=== PATIENT | female | born 1970 | race African-American/Black ===

== ENCOUNTER 2016-10-30 16:36 | Emergency (ER) | payer SELFPAY ==
--- OUTSIDE RECORDS SUMMARY | 2016-10-30 16:38 | XMS ---
:1970 Author Organization [facility] Address Unavailable , Allergies, Adverse Reactions, Alerts Allergy Name Reaction Description Start Date Severity Status Provider No Known Allergies Sangeetha Wasserman Conditions or Problems Problem Name Problem Code Onset Status Provider Entry Standard Date Date Description NEED PROPH ICD-V06.9 Active Aurdis NEED FOR VACCINATION W/UNSPEC 7 Mack KING 7 PROPHYLACTIC COMB VACCINE VACCINATION WITH UNSPECIFIED COMBINED VACCINE EDEMA LEG ICD-782.3 Active Amol Hagen EDEMA 8 PRODUCTION PAINTER 8 ANKLE PAIN, LEFT ICD-719.47 Active Amol Hagen PAIN IN JOINT, 8 PRODUCTION PAINTER 8 ANKLE AND FOOT ARM NUMBNESS ICD-782.0 Active Amol Hagen DISTURBANCE OF 8 PRODUCTION PAINTER 8 SKIN SENSATION 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 7 6 Medication List Medication Instructions Start Date Stop Date Product Name NDC Generic Name NAPROSYN 500 MG 1 by NAPROSYN [id number] NAPROXEN Active TABS mouth twice a day SPIRONOLACTONE SPIRONOLACTONE 80482079562 SPIRONOLACTONE Active 100 MG TABS TRAMADOL HCL 50 1-2 TRAMADOL HCL 60841150754 TRAMADOL HCL Active MG TABS tablets by mouth 4 times a day as needed for pain GABAPENTIN 300 1 by GABAPENTIN 56229713690 GABAPENTIN Active MG CAPS mouth three times a day AMITRIPTYLINE 1 by AMITRIPTYLINE 77564394506 AMITRIPTYLINE Active HCL 10 MG TABS mouth HCL HCL nightly at bedtime PROAIR HFA 108 2 puffs PROAIR HFA 72955610108 ALBUTEROL Active (90 BASE) every 4 SULFATE MCG/ACT AERS to 6 hours FLONASE 50 2 sprays FLONASE 85215935528 FLUTICASONE Active MCG/ACT SUSPN each PROPIONATE nostril (NASAL) every day CETIRIZINE HCL one CETIRIZINE HCL 77862549349 CETIRIZINE HCL Active 10 MG TABS tablet by mouth daily. Diagnostic Results Date Name Value Unit Range Description Lab Report: CBC With Differential/Platelet, Comp. Metabolic Panel (14) - Chemistry Absolute Neutrophils 1.9 X10E3/UL 10*3/uL 1.8-7.8 urea nitrogen/creatinine ratio, 14 9-23 serum sodium, serum 141 mmol/L 627-189 1733/02/28 potassium, serum 4.2 mmol/L 3.5-5.2 chloride, serum 103 mmol/L 97-108 carbon dioxide, venous blood 24 mmol/L 20-32 calcium, serum 9.7 mg/dL 8.7-10.2 protein, total, serum 7.3 g/dL 6.0-8.5 albumin, serum 4.2 g/dL 3.5-5.5 globulin, serum 3.1 1.5-4.5 albumin/globulin ratio, serum 1.4 1.1-2.5 bilirubin, serum, total 0.4 mg/dL 0.0-1.2 alkaline phosphatase, serum 86 U/L 25-150 aspartate aminotransferase (SGOT), 22 U/L 0-40 serum alanine aminotransferase (SGPT), 44 U/L 0-40 serum immature granulocytes, percentage 0 % 0-2 of total cells, blood blood glucose, random 68 mg/dL 65-99 urea nitrogen, blood 10 mg/dL 6-24 creatinine, serum 0.69 mg/dL 0.57-1.00 Estimated Glomerular Filtration 109 mL/min/1.73m2 >59 Rate (calc) Lab Report: CBC With Differential/Platelet, Comp. Metabolic Panel (14) - Genetics/fertility eGFR if 126 mL/min/1.73m2 >59 Lab Report: CBC With Differential/Platelet, Comp. Metabolic Panel (14) - Hematology lymphocyte count, blood, automated 3.5 X10E3/UL 10*3/mm3 0.7- 4.5 monocyte count, blood, automated 0.5 X10E3/UL 10*3/uL 0.1-1.0 Eosinophil Absolute Count 0.5 X10E3/UL 10*3/uL 0.0-0.4 basophil count, absolute 0.0 x10E3/uL 0.0-0.2 leukocyte count, blood 6.4 X10E3/UL 10*3/mm3 4.0-10.5 erythrocyte (RBC) count 4.90 X10E6/UL 10*6/mm3 3.80-5.10 hemoglobin, blood 13.1 g/dL 11.5-15.0 hematocrit, blood 42.2 % 34.0-44.0 mean corpuscular volume, RBC 86 fL 80-98 mean corpuscular hemoglobin, RBC 26.7 pg 27.0-34.0 mean corpuscular hemoglobin 31.0 G/DL % 32.0-36.0 concentration, RBC red blood cell distribution width 14.3 % 11.7-15.0 platelet count 365 X10E3/UL 10*3/mm3 296-302 7072/02/28 neutrophils as percent of blood 30 % 40-74 leukocytes lymphocytes as percent of blood 54 % 14-46 leukocytes monocytes as percent of blood 8 % 4-13 leukocytes eosinophils as percent of blood 7 % 0-7 leukocytes basophils as percent of blood 1 % 0-3 leukocytes Lab Report: CBC With Differential/Platelet, Comp. Metabolic Panel (14), ... - Chemistry immature granulocytes, 0 % 0-1 percentage of total cells, blood blood glucose, random 46 mg/dL 65-99 urea nitrogen, blood 7 mg/dL 5-26 creatinine, serum 0.76 mg/dL 0.57-1.00 estimated glomerular filtration >59 mL/min/1.73 mL/min >59 rate urea nitrogen/creatinine ratio, 9 8-27 serum sodium, serum 142 mmol/L 672-128 4434/07/08 potassium, serum 4.0 mmol/L 3.5-5.2 chloride, serum 102 mmol/L 97-108 carbon dioxide, venous blood 16 mmol/L 20-32 calcium, serum 9.8 mg/dL 8.7-10.2 protein, total, serum 7.9 g/dL 6.0-8.5 albumin, serum 4.6 g/dL 3.5-5.5 globulin, serum 3.3 1.5-4.5 albumin/globulin ratio, serum 1.4 1.1-2.5 bilirubin, serum, total 0.3 mg/dL 0.0-1.2 alkaline phosphatase, serum 89 U/L 25-150 aspartate aminotransferase 23 U/L 0-40 (SGOT), serum alanine aminotransferase (SGPT), 39 U/L 0-40 serum bilirubin, serum, direct 0.09 mg/dL 0.00-0.40 thyroid stimulating hormone, 3.060 u[iU]/mL 0.450-4.500 serum thyroxine, serum, total 6.7 ug/dL 4.5-12.0 triiodothyronine resin uptake 34 % 24-39 free thyroxine index 2.3 1.2-4.9 Absolute Neutrophils 2.4 X10E3/UL 10*3/uL 1.8-7.8 Lab Report: CBC With Differential/Platelet, Comp. Metabolic Panel (14), ... - Hematology lymphocyte count, blood, automated 3.5 X10E3/UL 10*3/mm3 0.7- 4.5 monocyte count, blood, automated 0.5 X10E3/UL 10*3/uL 0.1-1.0 Eosinophil Absolute Count 0.5 X10E3/UL 10*3/uL 0.0-0.4 basophil count, absolute 0.0 x10E3/uL 0.0-0.2 leukocyte count, blood 7.0 X10E3/UL 10*3/mm3 4.0-10.5 erythrocyte (RBC) count 5.12 X10E6/UL 10*6/mm3 3.80-5.10 hemoglobin, blood 14.0 g/dL 11.5-15.0 hematocrit, blood 43.2 % 34.0-44.0 mean corpuscular volume, RBC 84 fL 80-98 mean corpuscular hemoglobin, RBC 27.3 pg 27.0-34.0 mean corpuscular hemoglobin 32.4 G/DL % 32.0-36.0 concentration, RBC red blood cell distribution width 14.3 % 11.7-15.0 platelet count 353 X10E3/UL 10*3/mm3 657-486 8584/07/08 neutrophils as percent of blood 34 % 40-74 leukocytes lymphocytes as percent of blood 51 % 14-46 leukocytes monocytes as percent of blood 7 % 4-13 leukocytes eosinophils as percent of blood 8 % 0-7 leukocytes basophils as percent of blood 0 % 0-3 leukocytes Encounters Code Encounter Date Provider Facility CPT-44790 Ofc Vst, Est Level II Jane Ocasio 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 CAR 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 [facility] 15:25:54 CDT CPT-64981 Ofc Vst, Est Level [facility] 16:05:32 CHOCOLATE REFINING ROLLER CPT-97823 Est Patient Nurse - Aurdis Mack RN [facility] Only Visit - 14488 16:20:34 CHOCOLATE REFINING ROLLER Procedures Code Procedure Name Date Entry Date Standard Description CPT-38269 Handling of specimen for HANDLING AND/OR transfer from clinic to 15:45:02 CHOCOLATE REFINING ROLLER CONVEYANCE OF SPECIMEN lab FOR TRANSFER FROM THE OFFICE TO A LABORATORY CPT-08739 Venipuncture COLLECTION OF VENOUS 15:45:02 CHOCOLATE REFINING ROLLER BLOOD BY VENIPUNCTURE CPT-25572 SKN TST TUBERCULOSIS ID SKIN TEST; TUBERCULOSIS, 16:20:34 CHOCOLATE REFINING ROLLER INTRADERMAL CPT-00076 Admin of Vaccine - IMMUNIZATION Injection - 1 16:20:34 CHOCOLATE REFINING ROLLER ADMINISTRATION (INCLUDES PERCUTANEOUS, INTRADERMAL, SUBCUTANEOUS, OR INTRAMUSCULAR INJECTIONS); 1 VACCINE (SINGLE OR COMBINATION VACCINE/TOXOID)
--- OUTSIDE RECORDS SUMMARY | 2016-10-30 16:38 | XMS ---
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 7 6 Medication List Medication Instructions Start Date Stop Date Product Name NDC Generic Name NAPROSYN 500 MG 1 by NAPROSYN [id number] NAPROXEN Active TABS mouth twice a day SPIRONOLACTONE SPIRONOLACTONE 58582629228 SPIRONOLACTONE Active 100 MG TABS TRAMADOL HCL 50 1-2 TRAMADOL HCL 31824001763 TRAMADOL HCL Active MG TABS tablets by mouth 4 times a day as needed for pain GABAPENTIN 300 1 by GABAPENTIN 92093276018 GABAPENTIN Active MG CAPS mouth three times a day AMITRIPTYLINE 1 by AMITRIPTYLINE 63718766123 AMITRIPTYLINE Active HCL 10 MG TABS mouth HCL HCL nightly at bedtime PROAIR HFA 108 2 puffs PROAIR HFA 26418546568 ALBUTEROL Active (90 BASE) every 4 SULFATE MCG/ACT AERS to 6 hours FLONASE 50 2 sprays FLONASE 48608329796 FLUTICASONE Active MCG/ACT SUSPN each PROPIONATE nostril (NASAL) every day CETIRIZINE HCL one CETIRIZINE HCL 03759497188 CETIRIZINE HCL Active 10 MG TABS tablet by mouth daily. Diagnostic Results Date Name Value Unit Range Description Lab Report: CBC With Differential/Platelet, Comp. Metabolic Panel (14) - Chemistry Absolute Neutrophils 1.9 X10E3/UL 10*3/uL 1.8-7.8 urea nitrogen/creatinine ratio, 14 9-23 serum sodium, serum 141 mmol/L 701-497 1080/02/28 potassium, serum 4.2 mmol/L 3.5-5.2 chloride, serum [...] % 11.7-15.0 platelet count 365 X10E3/UL 10*3/mm3 044-002 4211/02/28 neutrophils as percent of blood 30 % [...] 9 8-27 serum sodium, serum 142 mmol/L 924-530 4293/07/08 potassium, serum 4.0 mmol/L 3.5-5.2 chloride, serum [...] % 11.7-15.0 platelet count 353 X10E3/UL 10*3/mm3 596-256 1137/07/08 neutrophils as percent of blood 34 % 40-74 leukocytes lymphocytes as percent of blood 51 % 14-46 leukocytes monocytes as percent of blood 7 % 4-13 leukocytes eosinophils as percent of blood 8 % 0-7 leukocytes basophils as percent of blood 0 % 0-3 leukocytes Encounters Code Encounter Date Provider Facility CPT-02892 Ofc Vst, Est Level II Jane Ocasio AD TERMINAL MAKEUP OPERATOR [facility] 15:25:54 CDT CPT-22290 Ofc Vst, Est Level [facility] III 16:05:32 SENIOR MATERIALS SCIENTIST CPT-50027 Est Patient Nurse - Aurdis Mack RN [facility] Only Visit - [id number] 16:20:34 SENIOR MATERIALS SCIENTIST Procedures Code Procedure Name Date Entry Date Standard Description CPT-98379 Handling of specimen for HANDLING AND/OR transfer from clinic to 15:45:02 SENIOR MATERIALS SCIENTIST CONVEYANCE OF SPECIMEN lab FOR TRANSFER FROM THE OFFICE TO A LABORATORY CPT-72214 Venipuncture COLLECTION OF VENOUS 15:45:02 SENIOR MATERIALS SCIENTIST BLOOD BY VENIPUNCTURE CPT-54473 SKN TST TUBERCULOSIS ID SKIN TEST; TUBERCULOSIS, 16:20:34 SENIOR MATERIALS SCIENTIST INTRADERMAL CPT-59346 Admin of Vaccine - IMMUNIZATION Injection - 1 16:20:34 SENIOR MATERIALS SCIENTIST ADMINISTRATION (INCLUDES PERCUTANEOUS, INTRADERMAL, SUBCUTANEOUS, OR INTRAMUSCULAR INJECTIONS); 1 VACCINE (SINGLE OR COMBINATION VACCINE/TOXOID)
--- OUTSIDE RECORDS SUMMARY | 2016-10-30 16:38 | XMS ---
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 7 6 Medication List Medication Instructions Start Date Stop Date Product Name NDC Generic Name NAPROSYN 500 MG 1 by NAPROSYN [id number] NAPROXEN Active TABS mouth twice a day SPIRONOLACTONE SPIRONOLACTONE 66338102693 SPIRONOLACTONE Active 100 MG TABS TRAMADOL HCL 50 1-2 TRAMADOL HCL 70869735703 TRAMADOL HCL Active MG TABS tablets by mouth 4 times a day as needed for pain GABAPENTIN 300 1 by GABAPENTIN 04950086193 GABAPENTIN Active MG CAPS mouth three times a day AMITRIPTYLINE 1 by AMITRIPTYLINE 33903389669 AMITRIPTYLINE Active HCL 10 MG TABS mouth HCL HCL nightly at bedtime PROAIR HFA 108 2 puffs PROAIR HFA 65120233125 ALBUTEROL Active (90 BASE) every 4 SULFATE MCG/ACT AERS to 6 hours FLONASE 50 2 sprays FLONASE 24031031082 FLUTICASONE Active MCG/ACT SUSPN each PROPIONATE nostril (NASAL) every day CETIRIZINE HCL one CETIRIZINE HCL 53809109550 CETIRIZINE HCL Active 10 MG TABS tablet by mouth daily. Diagnostic Results Date Name Value Unit Range Description Lab Report: CBC With Differential/Platelet, Comp. Metabolic Panel (14) - Chemistry Absolute Neutrophils 1.9 X10E3/UL 10*3/uL 1.8-7.8 urea nitrogen/creatinine ratio, 14 9-23 serum sodium, serum 141 mmol/L 202-392 1543/02/28 potassium, serum 4.2 mmol/L 3.5-5.2 chloride, serum [...] % 11.7-15.0 platelet count 365 X10E3/UL 10*3/mm3 842-483 5684/02/28 neutrophils as percent of blood 30 % [...] 9 8-27 serum sodium, serum 142 mmol/L 046-394 5005/07/08 potassium, serum 4.0 mmol/L 3.5-5.2 chloride, serum [...] % 11.7-15.0 platelet count 353 X10E3/UL 10*3/mm3 976-531 1919/07/08 neutrophils as percent of blood 34 % 40-74 leukocytes lymphocytes as percent of blood 51 % 14-46 leukocytes monocytes as percent of blood 7 % 4-13 leukocytes eosinophils as percent of blood 8 % 0-7 leukocytes basophils as percent of blood 0 % 0-3 leukocytes Encounters Code Encounter Date Provider Facility CPT-81445 Ofc Vst, Est Level II Jane Ocasio TAPPING MACHINE OPERATOR [facility] 15:25:54 CDT CPT-70161 Ofc Vst, Est Level [facility] III 16:05:32 ASSISTANT BUSINESS MANAGER CPT-73353 Est Patient Nurse - Aurdis Mack RN [facility] Only Visit - 55027 16:20:34 ASSISTANT BUSINESS MANAGER Procedures Code Procedure Name Date Entry Date Standard Description CPT-68605 Handling of specimen for HANDLING AND/OR transfer from clinic to 15:45:02 ASSISTANT BUSINESS MANAGER CONVEYANCE OF SPECIMEN lab FOR TRANSFER FROM THE OFFICE TO A LABORATORY CPT-04714 Venipuncture COLLECTION OF VENOUS 15:45:02 ASSISTANT BUSINESS MANAGER BLOOD BY VENIPUNCTURE CPT-06932 SKN TST TUBERCULOSIS ID SKIN TEST; TUBERCULOSIS, 16:20:34 ASSISTANT BUSINESS MANAGER INTRADERMAL CPT-86215 Admin of Vaccine - IMMUNIZATION Injection - 1 16:20:34 ASSISTANT BUSINESS MANAGER ADMINISTRATION (INCLUDES PERCUTANEOUS, INTRADERMAL, SUBCUTANEOUS, OR INTRAMUSCULAR INJECTIONS); 1 VACCINE (SINGLE OR COMBINATION VACCINE/TOXOID)
--- OUTSIDE RECORDS SUMMARY | 2016-10-30 16:38 | XMS ---
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 7 6 Medication List Medication Instructions Start Date Stop Date Product Name NDC Generic Name NAPROSYN 500 MG 1 by NAPROSYN 55410215801 NAPROXEN Active TABS mouth twice a day SPIRONOLACTONE SPIRONOLACTONE 60634473316 SPIRONOLACTONE Active 100 MG TABS TRAMADOL HCL 50 1-2 TRAMADOL HCL 64672697317 TRAMADOL HCL Active MG TABS tablets by mouth 4 times a day as needed for pain GABAPENTIN 300 1 by GABAPENTIN 46236763209 GABAPENTIN Active MG CAPS mouth three times a day AMITRIPTYLINE 1 by AMITRIPTYLINE 00307988885 AMITRIPTYLINE Active HCL 10 MG TABS mouth HCL HCL nightly at bedtime PROAIR HFA 108 2 puffs PROAIR HFA 13115291755 ALBUTEROL Active (90 BASE) every 4 SULFATE MCG/ACT AERS to 6 hours FLONASE 50 2 sprays FLONASE 40599248457 FLUTICASONE Active MCG/ACT SUSPN each PROPIONATE nostril (NASAL) every day CETIRIZINE HCL one CETIRIZINE HCL 74455071962 CETIRIZINE HCL Active 10 MG TABS tablet by mouth daily. Diagnostic Results Date Name Value Unit Range Description Lab Report: CBC With Differential/Platelet, Comp. Metabolic Panel (14) - Chemistry Absolute Neutrophils 1.9 X10E3/UL 10*3/uL 1.8-7.8 urea nitrogen/creatinine ratio, 14 9-23 serum sodium, serum 141 mmol/L 570-688 9990/02/28 potassium, serum 4.2 mmol/L 3.5-5.2 chloride, serum [...] % 11.7-15.0 platelet count 365 X10E3/UL 10*3/mm3 191-543 0273/02/28 neutrophils as percent of blood 30 % [...] 9 8-27 serum sodium, serum 142 mmol/L 377-870 4350/07/08 potassium, serum 4.0 mmol/L 3.5-5.2 chloride, serum [...] % 11.7-15.0 platelet count 353 X10E3/UL 10*3/mm3 332-192 0256/07/08 neutrophils as percent of blood 34 % 40-74 leukocytes lymphocytes as percent of blood 51 % 14-46 leukocytes monocytes as percent of blood 7 % 4-13 leukocytes eosinophils as percent of blood 8 % 0-7 leukocytes basophils as percent of blood 0 % 0-3 leukocytes Encounters Code Encounter Date Provider Facility CPT-00366 Ofc Vst, Est Level II Jane Ocasio ENAMEL DRIER [facility] Practice 15:25:54 CDT CPT-05693 Ofc Vst, Est Level [facility] III 16:05:32 PASTER SUPERVISOR CPT-60321 Est Patient Nurse - Aurdis Mack RN [facility] Only Visit - 94050 16:20:34 PASTER SUPERVISOR Procedures Code Procedure Name Date Entry Date Standard Description CPT-31935 Handling of specimen for HANDLING AND/OR transfer from clinic to 15:45:02 PASTER SUPERVISOR CONVEYANCE OF SPECIMEN lab FOR TRANSFER FROM THE OFFICE TO A LABORATORY CPT-49339 Venipuncture COLLECTION OF VENOUS 15:45:02 PASTER SUPERVISOR BLOOD BY VENIPUNCTURE CPT-20034 SKN TST TUBERCULOSIS ID SKIN TEST; TUBERCULOSIS, 16:20:34 PASTER SUPERVISOR INTRADERMAL CPT-81189 Admin of Vaccine - IMMUNIZATION Injection - 1 16:20:34 PASTER SUPERVISOR ADMINISTRATION (INCLUDES PERCUTANEOUS, INTRADERMAL, SUBCUTANEOUS, OR INTRAMUSCULAR INJECTIONS); 1 VACCINE (SINGLE OR COMBINATION VACCINE/TOXOID)
== END 2016-10-30 19:59 | disposition home or self-care (01) ==
LOC: ERS 16:36
DX: G89.18 Other acute postprocedural pain (principal); S62.619D Displaced fracture of proximal phalanx of unspecified finger, subsequent encounter for fracture with routine healing; M54.10 Radiculopathy, site unspecified; J45.909 Unspecified asthma, uncomplicated; M19.90 Unspecified osteoarthritis, unspecified site; X58.XXXD Exposure to other specified factors, subsequent encounter
CPT/HCPCS: 29125

== ENCOUNTER 2016-11-25 18:44 | Emergency (ER) | payer SELFPAY ==
--- NOTE | 2016-11-25 19:45 | RAD ---
LEFT HAND THREE VIEWS: 11/25/16 HISTORY: Trauma. Left hand pain, unable to make a fist, swelling. FINDINGS/IMPRESSION: Comparison made with exam of 10/29/16. Postop changes with three K-wires spanning the fracture of the proximal phalanx of the fifth digit/l ittle finger are again seen without change in position or alignment. Fracture lines are again visual ized. No new fracture or dislocation is identified. Degenerative changes are present. POS: TINO
--- OUTSIDE RECORDS SUMMARY | 2016-12-01 10:17 | XMS ---
:1970 Author Organization [facility] Address Unavailable , Allergies, Adverse Reactions, Alerts Allergy Name Reaction Description Start Date Severity Status Provider No Known Allergies Sangeetha Wasserman Conditions or Problems Problem Name Problem Code Onset Status Provider Entry Standard Date Date Description NEED PROPH ICD-V06.9 Active Aurdis NEED FOR VACCINATION W/UNSPEC 7 Mack KING 7 PROPHYLACTIC COMB VACCINE VACCINATION WITH UNSPECIFIED COMBINED VACCINE EDEMA LEG ICD-782.3 Active Amol aHgen EDEMA 8 LOOP MACHINE OPERATOR 8 ANKLE PAIN, LEFT ICD-719.47 Active Amol Hagen PAIN IN JOINT, 8 LOOP MACHINE OPERATOR 8 ANKLE AND FOOT ARM NUMBNESS ICD-782.0 Active Amol Hagen DISTURBANCE OF 8 LOOP MACHINE OPERATOR 8 SKIN SENSATION 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 7 6 Medication List Medication Instructions Start Date Stop Date Product Name NDC Generic Name NAPROSYN 500 MG 1 by NAPROSYN [id number] NAPROXEN Active TABS mouth twice a day SPIRONOLACTONE SPIRONOLACTONE 10745816880 SPIRONOLACTONE Active 100 MG TABS TRAMADOL HCL 50 1-2 TRAMADOL HCL 65407246856 TRAMADOL HCL Active MG TABS tablets by mouth 4 times a day as needed for pain GABAPENTIN 300 1 by GABAPENTIN 39501758624 GABAPENTIN Active MG CAPS mouth three times a day AMITRIPTYLINE 1 by AMITRIPTYLINE 76314200864 AMITRIPTYLINE Active HCL 10 MG TABS mouth HCL HCL nightly at bedtime PROAIR HFA 108 2 puffs PROAIR HFA 78572876151 ALBUTEROL Active (90 BASE) every 4 SULFATE MCG/ACT AERS to 6 hours FLONASE 50 2 sprays FLONASE 70932988047 FLUTICASONE Active MCG/ACT SUSPN each PROPIONATE nostril (NASAL) every day CETIRIZINE HCL one CETIRIZINE HCL 64966900667 CETIRIZINE HCL Active 10 MG TABS tablet by mouth daily. Diagnostic Results Date Name Value Unit Range Description Lab Report: CBC With Differential/Platelet, Comp. Metabolic Panel (14) - Chemistry Absolute Neutrophils 1.9 X10E3/UL 10*3/uL 1.8-7.8 urea nitrogen/creatinine ratio, 14 9-23 serum sodium, serum 141 mmol/L 781-870 5870/02/28 potassium, serum 4.2 mmol/L 3.5-5.2 chloride, serum [...] % 11.7-15.0 platelet count 365 X10E3/UL 10*3/mm3 981-397 0917/02/28 neutrophils as percent of blood 30 % [...] 9 8-27 serum sodium, serum 142 mmol/L 731-547 5563/07/08 potassium, serum 4.0 mmol/L 3.5-5.2 chloride, serum [...] % 11.7-15.0 platelet count 353 X10E3/UL 10*3/mm3 387-749 7013/07/08 neutrophils as percent of blood 34 % 40-74 leukocytes lymphocytes as percent of blood 51 % 14-46 leukocytes monocytes as percent of blood 7 % 4-13 leukocytes eosinophils as percent of blood 8 % 0-7 leukocytes basophils as percent of blood 0 % 0-3 leukocytes Encounters Code Encounter Date Provider Facility CPT-15842 Ofc Vst, Est Level II Jane Ocasio TRIM OPERATOR [facility] Practice 15:25:54 CDT CPT-36077 Ofc Vst, Est Level [facility] III 16:05:32 ORACLE EBS CONSULTANT CPT-92411 Est Patient Nurse - Aurdis Mack RN [facility] Visit - 92214 16:20:34 ORACLE EBS CONSULTANT Procedures Code Procedure Name Date Entry Date Standard Description CPT-29970 Handling of specimen for HANDLING AND/OR transfer from clinic to 15:45:02 ORACLE EBS CONSULTANT CONVEYANCE OF SPECIMEN lab FOR TRANSFER FROM THE OFFICE TO A LABORATORY CPT-20302 Venipuncture COLLECTION OF VENOUS 15:45:02 ORACLE EBS CONSULTANT BLOOD BY VENIPUNCTURE CPT-58043 SKN TST TUBERCULOSIS ID SKIN TEST; TUBERCULOSIS, 16:20:34 ORACLE EBS CONSULTANT INTRADERMAL CPT-53545 Admin of Vaccine - IMMUNIZATION Injection - 1 16:20:34 ORACLE EBS CONSULTANT ADMINISTRATION (INCLUDES PERCUTANEOUS, INTRADERMAL, SUBCUTANEOUS, OR INTRAMUSCULAR INJECTIONS); 1 VACCINE (SINGLE OR COMBINATION VACCINE/TOXOID)
--- OUTSIDE RECORDS SUMMARY | 2016-12-01 10:17 | XMS ---
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 7 6 Medication List Medication Instructions Start Date Stop Date Product Name NDC Generic Name NAPROSYN 500 MG 1 by NAPROSYN [id number] NAPROXEN Active TABS mouth twice a day SPIRONOLACTONE SPIRONOLACTONE 52486138302 SPIRONOLACTONE Active 100 MG TABS TRAMADOL HCL 50 1-2 TRAMADOL HCL 29914081491 TRAMADOL HCL Active MG TABS tablets by mouth 4 times a day as needed for pain GABAPENTIN 300 1 by GABAPENTIN [id number] GABAPENTIN Active MG CAPS mouth three times a day AMITRIPTYLINE 1 by AMITRIPTYLINE [id number] AMITRIPTYLINE Active HCL 10 MG TABS mouth HCL HCL nightly at bedtime PROAIR HFA 108 2 puffs PROAIR HFA 45546355605 ALBUTEROL Active (90 BASE) every 4 SULFATE MCG/ACT AERS to 6 hours FLONASE 50 2 sprays FLONASE 49833750006 FLUTICASONE Active MCG/ACT SUSPN each PROPIONATE nostril (NASAL) every day CETIRIZINE HCL one CETIRIZINE HCL 32388103149 CETIRIZINE HCL Active 10 MG TABS tablet by mouth daily. Diagnostic Results Date Name Value Unit Range Description Lab Report: CBC With Differential/Platelet, Comp. Metabolic Panel (14) - Chemistry Absolute Neutrophils 1.9 X10E3/UL 10*3/uL 1.8-7.8 urea nitrogen/creatinine ratio, 14 9-23 serum sodium, serum 141 mmol/L 338-685 0657/02/28 potassium, serum 4.2 mmol/L 3.5-5.2 chloride, serum [...] % 11.7-15.0 platelet count 365 X10E3/UL 10*3/mm3 237-364 1419/02/28 neutrophils as percent of blood 30 % [...] 9 8-27 serum sodium, serum 142 mmol/L 091-029 7413/07/08 potassium, serum 4.0 mmol/L 3.5-5.2 chloride, serum [...] % 11.7-15.0 platelet count 353 X10E3/UL 10*3/mm3 448-287 0259/07/08 neutrophils as percent of blood 34 % 40-74 leukocytes lymphocytes as percent of blood 51 % 14-46 leukocytes monocytes as percent of blood 7 % 4-13 leukocytes eosinophils as percent of blood 8 % 0-7 leukocytes basophils as percent of blood 0 % 0-3 leukocytes Encounters Code Encounter Date Provider Facility CPT-92627 Ofc Vst, Est Level II Jane Ocasio 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 [facility] 15:25:54 CDT CPT-24864 Ofc Vst, Est Level [facility] 16:05:32 HAND CULTIVATOR CPT-17751 Est Patient Nurse - Aurdis Mack RN [facility] Only Visit - 15880 16:20:34 HAND CULTIVATOR Procedures Code Procedure Name Date Entry Date Standard Description CPT-83395 Handling of specimen for HANDLING AND/OR transfer from clinic to 15:45:02 HAND CULTIVATOR CONVEYANCE OF SPECIMEN lab FOR TRANSFER FROM THE OFFICE TO A LABORATORY CPT-79901 Venipuncture COLLECTION OF VENOUS 15:45:02 HAND CULTIVATOR BLOOD BY VENIPUNCTURE CPT-08173 SKN TST TUBERCULOSIS ID SKIN TEST; TUBERCULOSIS, 16:20:34 HAND CULTIVATOR INTRADERMAL CPT-93352 Admin of Vaccine - IMMUNIZATION Injection - 1 16:20:34 HAND CULTIVATOR ADMINISTRATION (INCLUDES PERCUTANEOUS, INTRADERMAL, SUBCUTANEOUS, OR INTRAMUSCULAR INJECTIONS); 1 VACCINE (SINGLE OR COMBINATION VACCINE/TOXOID)
== END 2016-11-25 20:15 | disposition home or self-care (01) ==
LOC: ERS 18:44
DX: G89.18 Other acute postprocedural pain (principal); M79.642 Pain in left hand; J45.909 Unspecified asthma, uncomplicated; M19.90 Unspecified osteoarthritis, unspecified site; W22.03XA Walked into furniture, initial encounter
CPT/HCPCS: 99283

== ENCOUNTER 2017-07-17 19:20 | Emergency (ER) | payer SELFPAY ==
--- NOTE | 2017-07-17 20:39 | RAD ---
LEFT HAND THREE VIEW: 07/17/17 HISTORY: Pain. Swelling. COMPARISON: Radiographs 2017. FINDINGS: There appears to be incomplete interval healing of the fifth proximal phalanx fracture. Extensive lilian ear periosteal new bone formation. A fracture line is not well evident although a subtle lucency pers ists. There is narrowing of the proximal interphalangeal joint. IMPRESSION: 1. Incomplete healing of the fifth proximal phalanx fracture. 2. Positive ulnar variance with erosions of the lunate suggests ulnar carpal abutment. POS: TINO
== END 2017-07-17 21:58 | disposition home or self-care (01) ==
LOC: ERS 19:20
DX: S62.617A Displaced fracture of proximal phalanx of left little finger, initial encounter for closed fracture (principal); J45.909 Unspecified asthma, uncomplicated; M19.90 Unspecified osteoarthritis, unspecified site; Z79.899 Other long term (current) drug therapy; X58.XXXA Exposure to other specified factors, initial encounter

== ENCOUNTER 2017-07-31 19:29 | Emergency (ER) | payer SELFPAY ==
[2017-07-31] MEDS ORDERED: Ketorolac Tromethamine 30 MG/ML VIAL ONE (20:05)
--- NOTE | 2017-07-31 20:45 | RAD ---
THREE VIEWS OF THE LEFT HAND: 07/31/17 COMPARISON: None. HISTORY: Left hand pain for two weeks. FINDINGS: Three views of the left hand shows no evidence of acute fracture or dislocation. There are multiple K -wires seen spanning the proximal phalanx of the small finger. Surrounding soft tissue swelling is se en. IMPRESSION: Postsurgical changes of the proximal phalanx of the small finger without acute osseous abnormality. POS: C
== END 2017-07-31 20:42 | disposition home or self-care (01) ==
LOC: ERS 19:29
DX: M79.642 Pain in left hand (principal); J45.909 Unspecified asthma, uncomplicated; M19.90 Unspecified osteoarthritis, unspecified site; Z79.899 Other long term (current) drug therapy
CPT/HCPCS: 96372; J1885

== ENCOUNTER 2017-09-13 10:38 | Outpatient (CLI) | payer OTHER, SELFPAY | END 2017-09-13 10:39 | disposition home or self-care (01) | LOC: BICMRI 10:38 | PROVIDERS: ATTEND Orthopaedic Surgery Hand Surgery | DX: M54.5 Low back pain (principal); S69.82XA Other specified injuries of left wrist, hand and finger(s), initial encounter ==

== ENCOUNTER 2017-10-04 15:33 | Outpatient (CLI) | payer SELFPAY ==
[2017-10-04 17:33] LABS: #Basophils 0.1 thou/uL (0.0-0.2); #Eosinphils 0.3 thou/uL (0.0-0.7); #Lymphocytes 2.8 thou/uL (1.20-3.40); #Monocytes 0.4 thou/uL (0.11-0.59); #Neutrophils 2.8 thou/uL (1.40-6.50); %Neutrophils 43.9 % (42.0-75.0); Hemoglobin 13.3 g/dL (12.0-16.0); Mean Corpuscular HGB CONC 33.5 g/dL (32.0-36.0); Mean Corpuscular Hemoglobin 28.4 pg (27.0-31.0); Mean Corpuscular Volume 84.8 fL (78.0-98.0); Mean Platelet Volume 6.9 fL (7.4-10.4); PLT Morphology Comment Appears Adequate; Platelet Count 321 thou/uL (130-400); RBC Distribution Width 12.5 % (11.5-14.5); RBC Morphology Normal; Red Blood Cell (RBC) Count 4.67 mill/uL (4.20-5.40); White Blood Cell (WBC) Count 6.3 thou/uL (4.8-10.8)
[2017-10-04 17:51] LABS: BHCG - Serum Negative (NEGATIVE); Pregs Control Background? CLEAR/WHITE (CLR/WHITE); Pregs Control Bar Appear? YES (CONTROL BAR)
== END 2017-10-04 15:34 | disposition home or self-care (01) ==
LOC: LABBT 15:33
PROVIDERS: ATTEND Orthopaedic Surgery Hand Surgery
DX: Z01.812 Encounter for preprocedural laboratory examination (principal); L02.512 Cutaneous abscess of left hand
CPT/HCPCS: 84703; 85025

== ENCOUNTER 2017-10-05 11:05 | Day surgery (SDC) | payer SELFPAY ==
[2017-10-05] MEDS ORDERED: Clindamycin/D5W 600 mg/50 ml Premix Bag ONE (11:45)
[2017-10-05] MEDS ORDERED: Bupivacaine PF 0.5% 30 ML VIAL ONE (14:35)
[2017-10-05] MEDS ORDERED: Betamet Acet/Betamet Na Ph 30 MG/5 ML VIAL ONE (14:35)
[2017-10-05] MEDS ORDERED: Bacitracin Zinc Ointment 30 gm TUBE ONE (14:35)
[2017-10-05] MEDS ORDERED: Promethazine HCl 25 MG/ML VIAL ONE (14:39)
[2017-10-05] MEDS ORDERED: HYDROmorphone 2 MG/ML VIAL ONE (14:39)
--- NOTE | 2017-10-05 16:26 | RAD ---
TWO INTRAOPERATIVE FLUOROSCOPIC IMAGES OF THE LEFT FINGERS: Date: 10-05-17 History: Hardware removal. Comparison: 07-31-17 FINDINGS/IMPRESSION: Previously noted three wires within the proximal phalanx of the left small finger have been removed. There is irregularity at the medial aspect of the proximal phalanx, probably related to site of previ ous hardware. Correlation with intraoperative findings is recommended. POS: TINO
[2017-10-05] MEDS ORDERED: Fentanyl 100 MCG/2 ML VIAL ONE ×2 (16:30→16:50)
[2017-10-05] MEDS ORDERED: Ketorolac Tromethamine 30 MG/ML VIAL ONE (16:49)
--- NOTE | 2017-10-06 11:08 | OP ---
DATE OF PROCEDURE: 10/05/2017 PREOPERATIVE DIAGNOSES: 1. Right ring finger painful deep wire. 2. Right small finger painful deep wire. 3. Possible abscess and/or nerve compression from the wire to ring finger. FINDINGS: 1. No nerve laceration of the ring finger, radial, ulnar digital nerve. 2. Small hematoma around the radial digital nerve of the ring finger where the wire had caused some irritation, but there was no nerve laceration. 3. Completely healed fracture of small finger, where the wires had been located previously. PROCEDURES PERFORMED: 1. Neuroplasty radial and ulnar digital nerve, ring finger. 2. Removal via C-arm, ring finger painful deep implant. 3. Removal via C-arm small finger painful deep implant/K wires. 4. C-arm supervision. TOURNIQUET TIME: 20 minutes. ESTIMATED BLOOD LOSS: 10 mL. INDICATIONS: The patient had had open reduction and internal fixation of a small finger base, very c omplicated fracture using 3 K-wires almost 5 months ago. Over two months ago, she had migration of t he wire from the small finger into the ring finger began to have numbness and tingling. Then, report s to our clinic for 30 hours prior to procedure and had complained of drainage around with obvious smith bcutaneous ring finger pin site. We attempted to achieve restitution via surgery the evening before but [facility] schedule did not permit it. She returns today to have the procedure performed. DESCRIPTION OF PROCEDURE: After successful general LMA technique, the limb was prepped and draped. The limb was exsanguinated, tourniquet was inflated to 250 mmHg pressure, [facility] We gave a total of 20 mL of 0.5% Marcaine to block the ring finger and small finger proximal to the metacarpophalangeal joint using 10 preprocedure and 10 after. Then, C-arm was brought to the eld, we identified the ring finger and small finger wires with two in the small finger proximal phala nx and one in the ring finger proximal phalanx. We dissected the skin, subcutaneous tissue, identifi ed with the tourniquet inflated the ring finger wire. Then, because of the complaints and poor close proximity wire to the digital nerve, we extended the incision 2 cm proximal and 1 distal. I perform ed a formal neuroplasty of both nerves and suspected them throughout the area of possible concern, th ey were intact except a small hematoma around the radial digital nerve of the ring finger. We remove d this under direct magnification. We then turned our attention to the small finger proximal phalanx using C-arm, we made a small 5 mm i ncision x2 and removed these wire without complication. the patient could now achieve full ext ension at the IP joints and the MP joint could receive full flexion touching the palm. The patient mykel ambriz left the operating room with the wounds closed with 4-0 nylon, gave the remaining 10 mL of 0.5% M arcaine without epinephrine and a bulky dressing was applied without a splint.
== END 2017-10-05 18:02 | disposition home or self-care (01) ==
LOC: SDC 11:05
PROVIDERS: ATTEND Orthopaedic Surgery Hand Surgery
PROC: 01N60ZZ Release Radial Nerve, Open Approach (ICD-10-PCS; principal; 2017-10-05)
PROC: 0RPW04Z Removal of Internal Fixation Device from Right Finger Phalangeal Joint, Open Approach (ICD-10-PCS; principal; 2017-10-05)
DX: T84.84XA Pain due to internal orthopedic prosthetic devices, implants and grafts, initial encounter (principal); T84.220A Displacement of internal fixation device of bones of hand and fingers, initial encounter; S60.041A Contusion of right ring finger without damage to nail, initial encounter; Z79.51 Long term (current) use of inhaled steroids; Z79.899 Other long term (current) drug therapy; Z98.890 Other specified postprocedural states
CPT/HCPCS: 76001; 96374; 96375; 96376; J0702; J1170; J1885; J2550; J3010; J3490; S0020

== ENCOUNTER 2018-01-14 11:34 | Outpatient (CLI) | payer OTHER ==
--- NOTE | 2018-01-14 13:40 | RAD ---
LEFT HIP TWO VIEWS: HISTORY: A 47-year-old female with a history of left hip pain without injury. FINDINGS/IMPRESSION: Arthrosis and degenerative changes, left hip joint, without fracture, dislocation, or other significa nt acute osseous abnormality. POS: TINO
--- NOTE | 2018-01-14 13:41 | RAD ---
RIGHT HIP TWO VIEWS: HISTORY: A 47-year-old female with a history of right hip pain without acute injury. FINDINGS/IMPRESSION: Right hip joint arthrosis and degenerative changes are noted, including some subchondral cystic castañeda es in the superior acetabulum. No fracture, dislocation, or other acute process. POS: TINO
--- NOTE | 2018-01-14 13:41 | RAD ---
RIGHT KNEE 2 VIEWS: HISTORY: A 47-year-old female with a history of right knee pain without injury. FINDINGS/IMPRESSION: Mild degenerative changes. No fracture, dislocation, or other acute process. POS: TINO
== END 2018-01-14 11:35 | disposition home or self-care (01) ==
LOC: BICRAD 11:34
PROVIDERS: ATTEND Internal Medicine
DX: M25.551 Pain in right hip (principal); M25.561 Pain in right knee; M17.11 Unilateral primary osteoarthritis, right knee; M16.0 Bilateral primary osteoarthritis of hip

== ENCOUNTER 2018-03-14 06:57 | Outpatient (CLI) | payer OTHER ==
[2018-03-14 16:40] LABS: Hemoglobin 11.4 g/dL (12.0-16.0); Mean Corpuscular HGB CONC 31.7 g/dL (32.0-36.0); Mean Corpuscular Hemoglobin 27.7 pg (27.0-31.0); Mean Corpuscular Volume 87.5 fL (78.0-98.0); Mean Platelet Volume 6.8 fL (7.4-10.4); Platelet Count 308 thou/uL (130-400); RBC Distribution Width 12.7 % (11.5-14.5); Red Blood Cell (RBC) Count 4.13 mill/uL (4.20-5.40); White Blood Cell (WBC) Count 6.9 thou/uL (4.8-10.8)
[2018-03-14 16:50] LABS: BHCG - Serum Negative (NEGATIVE); Pregs Control Background? CLEAR/WHITE (CLR/WHITE); Pregs Control Bar Appear? YES (CONTROL BAR)
[2018-03-14 16:57] LABS: Bacteria/HPF None Seen HPF (None Seen); Bilirubin Small (Negative); Blood, Urine Large (Negative); Clarity CLEAR (Clear); Glucose, Urine (Dipstick) Negative (Negative); Hyaline Casts/LPF 0-3 HYALINE CAST LPF (0-3 Hyaline); Leukocyte Negative (Negative); Nitrite Negative (Negative); Pathc Cast-AUWi Flag 0.43 (0-2.49); Protein, Urine (Dipstick) Negative (Neg-Trace); Specific Gravity, Urine 1.039 (1.002-1.036); Squamous Epithelial None Seen HPF (0-3); WBC/HPF None Seen HPF (0-3); pH, Urine 5.5 (5.0-9.0)
[2018-03-14 16:59] LABS: Eosinophils 5 % (0-10); Lymphocytes 56 % (21-51); MDiff Complete? YES; Monocytes 3 % (0-10); Neutrophil 35 % (42-75); Platelet Morphology Comment Appears Adequate; RBC Morphology Normal
[2018-03-14 17:00] LABS: Anion Gap 12 mmol/L (10-20); BUN (Urea Nitrogen) 16 mg/dL (7.0-18.7); Calc. Creatinine Clearance 0 mL/min (70-130); Carbon Dioxide 24 mmol/L (22-29); Chloride 109 mmol/L (98-107); Estimated GFR-MDRD 68; Glucose 89 mg/dL (70-105); Potassium 3.7 mmol/L (3.5-5.1); Sodium 141 mmol/L (136-145)
== END 2018-03-14 06:58 | disposition home or self-care (01) ==
LOC: LABBT 06:57
PROVIDERS: ATTEND Orthopaedic Surgery Hand Surgery
DX: Z01.812 Encounter for preprocedural laboratory examination (principal); S63.592A Other specified sprain of left wrist, initial encounter
CPT/HCPCS: 80048; 81001; 84703; 85025

== ENCOUNTER 2018-04-17 22:15 | Emergency (ER) | payer SELFPAY ==
--- NOTE | 2018-04-17 23:29 | RAD ---
LEFT HAND THREE VIEWS: Indication: History of left hand pain. FINDINGS: There is a healed fracture deformity involving the small finger proximal phalanx. There is stable uln ar positive configuration at the DRUJ with changes of ulnar carpal abutment syndrome. There is degene rative cyst like abnormality seen within the lunate. There is scattered IP osteoarthritic change of t he left hand. No acute fracture or subluxation is evident. IMPRESSION: No acute osseous abnormality. POS: MCKINLEY
[2018-04-17] MEDS ORDERED: Ketorolac Tromethamine 30 MG/ML VIAL ONE (23:40)
== END 2018-04-17 23:55 | disposition home or self-care (01) ==
LOC: ERS 22:15
DX: M25.432 Effusion, left wrist (principal); J45.909 Unspecified asthma, uncomplicated; M19.90 Unspecified osteoarthritis, unspecified site
CPT/HCPCS: 96372; J1885

== ENCOUNTER 2018-07-21 01:44 | Outpatient (CLI) | payer OTHER ==
[2018-07-21 09:29] LABS: #Basophils 0.1 thou/uL (0.0-0.2); #Eosinphils 0.2 thou/uL (0.0-0.7); #Lymphocytes 2.8 thou/uL (1.20-3.40); #Monocytes 0.4 thou/uL (0.11-0.59); #Neutrophils 2.2 thou/uL (1.40-6.50); %Basophils 1.4 % (0.0-1.0); %Eosinophils 3.9 % (0.0-10.0); %Monocytes 7.2 % (0.0-10.0); %Neutrophils 38.5 % (42.0-75.0); Hemoglobin 11.6 g/dL (12.0-16.0); Mean Corpuscular HGB CONC 31.6 g/dL (32.0-36.0); Mean Corpuscular Hemoglobin 27.7 pg (27.0-31.0); Mean Corpuscular Volume 87.5 fL (78.0-98.0); Mean Platelet Volume 6.9 fL (7.4-10.4); Platelet Count 321 thou/uL (130-400); RBC Distribution Width 12.9 % (11.5-14.5); Red Blood Cell (RBC) Count 4.19 mill/uL (4.20-5.40); White Blood Cell (WBC) Count 5.7 thou/uL (4.8-10.8)
[2018-07-21 09:37] LABS: Bilirubin Negative (Negative); Blood, Urine Negative (Negative); Clarity CLEAR (Clear); Glucose, Urine (Dipstick) Negative (Negative); Leukocyte Negative (Negative); Nitrite Negative (Negative); Protein, Urine (Dipstick) Negative (Neg-Trace); Specific Gravity, Urine 1.025 (1.002-1.036); pH, Urine 5.5 (5.0-9.0)
[2018-07-21 09:40] LABS: Bacteria/HPF None Seen HPF (None Seen); Hyaline Casts/LPF 0-3 HYALINE CAST LPF (0-3 Hyaline); Squamous Epithelial 0-3 HPF (0-3); WBC/HPF 0-3 HPF (0-3)
[2018-07-21 09:42] LABS: BHCG - Serum Negative (NEGATIVE); Pregs Control Background? CLEAR/WHITE (CLR/WHITE); Pregs Control Bar Appear? YES (CONTROL BAR)
[2018-07-21 09:51] LABS: RBC/HPF 0-3 HPF (0-3)
--- NOTE | 2018-07-22 21:23 | EKG ---
Test Reason : Blood Pressure : / mmHG Vent. Rate : 076 BPM Atrial Rate : 076 BPM P-R Int : 144 ms QRS Dur : 080 ms QT Int : 396 ms P-R-T Axes : 067 003 018 degrees QTc Int : 445 ms Normal sinus rhythm Low voltage QRS Cannot rule out Anterior infarct , age undetermined Abnormal ECG No previous ECGs available Confirmed by Christina BULLARD ([id number]) on 07/22/2018 9:22:36 PM Referred By: LIVE Confirmed By:Christina BULLARD
== END 2018-07-21 01:45 | disposition home or self-care (01) ==
LOC: LABBT 01:44
PROVIDERS: ATTEND Orthopaedic Surgery Hand Surgery
DX: Z01.818 Encounter for other preprocedural examination (principal); G56.02 Carpal tunnel syndrome, left upper limb; S63.592A Other specified sprain of left wrist, initial encounter
CPT/HCPCS: 81001; 84703; 85025; 86850; 86900; 86901; 93005; 93010

== ENCOUNTER 2018-07-29 11:48 | Day surgery (SDC) | payer OTHER ==
[2018-07-21 08:21] VITALS: BMI 33.5
[2018-07-21 09:29] LABS: #Basophils 0.1 thou/uL (0.0-0.2); #Eosinphils 0.2 thou/uL (0.0-0.7); #Lymphocytes 2.8 thou/uL (1.20-3.40); #Monocytes 0.4 thou/uL (0.11-0.59); #Neutrophils 2.2 thou/uL (1.40-6.50); %Basophils 1.4 % (0.0-1.0); %Eosinophils 3.9 % (0.0-10.0); %Monocytes 7.2 % (0.0-10.0); %Neutrophils 38.5 % (42.0-75.0); Hemoglobin 11.6 g/dL (12.0-16.0); Mean Corpuscular HGB CONC 31.6 g/dL (32.0-36.0); Mean Corpuscular Hemoglobin 27.7 pg (27.0-31.0); Mean Corpuscular Volume 87.5 fL (78.0-98.0); Mean Platelet Volume 6.9 fL (7.4-10.4); Platelet Count 321 thou/uL (130-400); RBC Distribution Width 12.9 % (11.5-14.5); Red Blood Cell (RBC) Count 4.19 mill/uL (4.20-5.40); White Blood Cell (WBC) Count 5.7 thou/uL (4.8-10.8)
[2018-07-21 09:37] LABS: Bilirubin Negative (Negative); Blood, Urine Negative (Negative); Clarity CLEAR (Clear); Glucose, Urine (Dipstick) Negative (Negative); Leukocyte Negative (Negative); Nitrite Negative (Negative); Protein, Urine (Dipstick) Negative (Neg-Trace); Specific Gravity, Urine 1.025 (1.002-1.036); pH, Urine 5.5 (5.0-9.0)
[2018-07-21 09:40] LABS: Bacteria/HPF None Seen HPF (None Seen); Hyaline Casts/LPF 0-3 HYALINE CAST LPF (0-3 Hyaline); Squamous Epithelial 0-3 HPF (0-3); WBC/HPF 0-3 HPF (0-3)
[2018-07-21 09:42] LABS: BHCG - Serum Negative (NEGATIVE); Pregs Control Background? CLEAR/WHITE (CLR/WHITE); Pregs Control Bar Appear? YES (CONTROL BAR)
[2018-07-21 09:51] LABS: RBC/HPF 0-3 HPF (0-3)
[2018-07-29] MEDS ORDERED: Midazolam HCl 2 mg/2 ml Vial ONE (13:13)
[2018-07-29] MEDS ORDERED: Fentanyl 100 MCG/2 ML VIAL ONE ×2 (13:14→15:53)
[2018-07-29] MEDS ORDERED: Lidocaine 1% (PF) 30 ML VIAL ONE (13:41)
[2018-07-29] MEDS ORDERED: Sodium Chloride 0.9% 10 ML ONE (15:38)
[2018-07-29] MEDS ORDERED: Bupivacaine PF 0.5% 30 ML VIAL ONE (15:38)
[2018-07-29] MEDS ORDERED: Bacitracin Zinc Ointment 30 gm TUBE ONE (15:38)
[2018-07-29] MEDS ORDERED: Bupivacaine HCl 0.5%/Epinephrine 1:200,000/PF 30 ml Vial ONE (16:07)
[2018-07-29] MEDS ORDERED: Betamet Acet/Betamet Na Ph 30 MG/5 ML VIAL ONE ×2 (16:31→16:40)
--- NOTE | 2018-07-29 18:27 | RAD ---
XR Forearm Lt 2 View STANDARD History: Left forearm shortening and screws Comparison: None. Findings: No images were sent for review. Impression: Fluoroscopy time 5 seconds.
[2018-07-29] MEDS ORDERED: Ketorolac Tromethamine 30 MG/ML VIAL ONE (19:24)
--- NOTE | 2018-07-31 16:30 | OP ---
DATE OF PROCEDURE: 07/29/2018 PREOPERATIVE DIAGNOSES: 1. Left small finger, trigger finger. 2. Left ring finger, trigger finger. 3. Left carpal tunnel syndrome. 4. Left de Quervain first dorsal compartment tenosynovitis. 5. Left triangular fibrocartilage tear, large degenerative type 2. 6. Ulnocarpal impingement. POSTOPERATIVE DIAGNOSES: 1. Left small finger, trigger finger. 2. Left ring finger, trigger finger. 3. Left carpal tunnel syndrome. 4. Left de Quervain first dorsal compartment tenosynovitis. 5. Left triangular fibrocartilage tear, large degenerative type 2. 6. Ulnocarpal impingement. With findings of very tight transverse carpal ligament, very tight A1 pulleys bilaterally, very tight 1st dorsal compartment retinaculum, and intraoperatively she had synovitis of the wrists with some fraying of the chondral surface on the ulnar lunate from impingement and evidence of ulnar impingement of the ulnar, was actually sticking through up to the level of the radial side to central degenerative tear. PROCEDURES PERFORMED: 1. Left small finger A1 lauren release. 2. Left ring finger A1 lauren release. 3. Left carpal tunnel release. 4. Left de Quervain first dorsal compartment release with tenosynovectomy. 5. Left wrist arthroscopic synovectomy. 6. Left wrist arthroscopic chondroplasty. 7. Left wrist arthroscopic triangular fibrocartilage resection. 8. Left wrist ulnar shortening, Rayhack type osteotomy with plate. 9. Application of long-arm splint. 10. C-arm supervision. COMPLICATIONS: None. INDICATIONS FOR PROCEDURE: After all the above failed conservative treatment, the patient initially presented to us almost a year ago with small finger fracture. We had removed the hardware in the clinic and now these problems present themselves. They did not respond to conservative treatment, for which we had MRI for diagnosis of the lesions that could be diagnosed on MRI, we would like to pursue operative intervention. DESCRIPTION OF PROCEDURE: After successful general LMA technique, the limb was prepped and draped. We placed our arthroscopic arm quinn, sterilely, and then measured finger traps with size to do the open procedures 1st. We exsanguinated the limb, inflated tourniquet to 250 mmHg pressure and then had outlined the carpal tunnel, small finger, ring finger, longitudinal zigzag line of Ramon approaches and outlined the arthroscopic approaches as well as the Rayhack and the possible more proximal procedures. We then placed the hand in an appropriate secured dressing, and made a Ramon-type incision just ulnar to the A1 lauren of the small finger one just radial to the A1 lauren of the ring finger, maximized the space for soft tissue in between. We carried the small finger through skin and subcutaneous tissue, protecting the digital nerves and found very thick retinaculum, released this in the midline under direct visualization with a [place] blade by the surgeon. Similarly, the same incision was made down to the neurovascular bundles, protected and retracted well away from the center field. Next, the patient had the A1 lauren released under direct vision, both sides. 1 mL Celestone was placed in each wound. We turned our attention to the transverse carpal ligament area where incision was outlined in line with the ring finger mediolaterally and Pardo cardinal line 5 mm distal to volar wrist flexion crease. We carried this incision through skin and subcutaneous tissue down to the level of the palmaris longus and just along the palmaris longus, we released the transverse retinaculum under direct visualization without complication. Then, we turned our attention to the remainder of the transverse carpal area where we found no evidence of lipoma or other abnormality, so we released under direct visualization the transverse carpal ligament proximal to the carpal tunnel. We left all these 3 wounds opened while the tourniquet was up, and then we localized 1st dorsal compartment where we made a zigzag incision centered over the radial styloid, carried through the skin and subcutaneous tissue to reach the soft tissue cuff of this situation and felt that it had been maximized. Then, we made the incision the radial styloid, protected all branches of superficial radial nerve and then went down to the retinacular for release of retinaculum in midline, 1st the midportion distally and then from the incision of the sheath and tenosynovectomy now complete, we then performed Celestone here. We closed all wounds under the tourniquet and at this point, the tourniquet time was approximately 30 minutes total. We placed the arm in traction, outlined the 3, 4, 6U and 6R portals and then made a panoramic view of the wrist where we saw a marked synovitis in the radiocarpal, ulnocarpal, and the central portion of the knee. Then, we performed arthroscopic evaluation scapholunate ligament was intact. There was minimal widening as were the lunate and triquetrum with marked widening. There was no evidence of any other abnormalities seen. The patient then had the TFCC tear, a chondral lesion on the lunate, all the synovitis resected to a stable rim with a TFCC tear which now I made, it was approximately 1 cm in diameter and beginning 5 mm off the edge of the radius to the central portion TFCC. There was no evidence of anesthetic or operative confirmation at this time, but we removed the arthroscope after the synovectomy and debridement and resection of the tear, and then because of the ulnocarpal impingement clearly seen on the ulnar edge of the lunate and on the lunate itself, we made a zigzag incision, carried through skin and subcutaneous tissue, through the fascia and directed down to the bone where the slightly more volar than lateral surface indicated excellent place for a Rayhack type plate. We placed the plate along it. The patient had the periosteum removed sharply with a knife, we found the flat surface was slightly more volar than direct dorsal, placed the Rayhack cut devices with 3 holes proximal, drilled, tapped to get 2.7 screw hole, and placed 2.7 screws into the bone and then protecting the back of the cut guides with a Ragnell, we were able to perform the cut. The 2.5 mm wafer was removed. We then placed the previous screws in the proximal 3 holes with the 3rd going through the coaptation device and the 4th going through the coaptation device. We then made the ends contact directly. There was no appreciable angulation or malrotation. We then released the tourniquet, obtained hemostasis, placed the lag screw in place, now the patient had 3.5 cortices in. The patient then had no complications from the Rayhack fixation, which was stable, we had coapted the ends together with the coaptation device, and placed the final lag screw. The fascia was then closed with a running 0 Vicryl, undyed, subcutaneous closed with 3-0 Monocryl, undyed, running and the patient had 4-0 nylon used in a mattress interrupted fashion to close the epidermis. The patient had a block and so after 90 minutes of tourniquet, the tourniquet was completely down. We also closed the arthroscopic portals with 4-0 nylon. The patient left the operating room without evidence of anesthetic or operative complication. Job ID: [id number]
== END 2018-07-29 20:25 | disposition home or self-care (01) ==
LOC: SDC 11:48
PROVIDERS: ATTEND Orthopaedic Surgery Hand Surgery
PROC: 3E0T3BZ Introduction of Anesthetic Agent into Peripheral Nerves and Plexi, Percutaneous Approach (ICD-10-PCS; principal; 2018-07-29)
PROC: 01N50ZZ Release Median Nerve, Open Approach (ICD-10-PCS; principal; 2018-07-29)
PROC: 0LN80ZZ Release Left Hand Tendon, Open Approach (ICD-10-PCS; principal; 2018-07-29)
PROC: 0PSL04Z Reposition Left Ulna with Internal Fixation Device, Open Approach (ICD-10-PCS; principal; 2018-07-29)
PROC: 0MB64ZZ Excision of Left Wrist Bursa and Ligament, Percutaneous Endoscopic Approach (ICD-10-PCS; principal; 2018-07-29)
PROC: 0LN60ZZ Release Left Lower Arm and Wrist Tendon, Open Approach (ICD-10-PCS; principal; 2018-07-29)
DX: G56.02 Carpal tunnel syndrome, left upper limb (principal); M65.342 Trigger finger, left ring finger; M65.352 Trigger finger, left little finger; M65.4 Radial styloid tenosynovitis [de Quervain]; M24.542 Contracture, left hand; S63.592A Other specified sprain of left wrist, initial encounter; M25.832 Other specified joint disorders, left wrist; G89.18 Other acute postprocedural pain; J45.909 Unspecified asthma, uncomplicated; Z98.890 Other specified postprocedural states; Z79.899 Other long term (current) drug therapy
CPT/HCPCS: 76000; 81001; 84703; 85025; 86850; 86900; 86901; C1713; J0690; J0702; J1885; J2001; J2250; J3010; J3490; S0020

== ENCOUNTER 2018-11-14 20:58 | Emergency (ER) | payer MEDICAID, SELFPAY ==
--- NOTE | 2018-11-14 21:53 | RAD ---
XR Wrist 3 Lt View STANDARD History: Wrist pain Comparison: Hand radiograph April 2018 Findings: Distal ulnar plate and screw fixation with fracture line still appreciated. Positive ulnar variance with ulnar carpal abutment and subcortical cyst formation medial lunate. Pericapsular ossification along the fifth carpometacarpal joint. High-grade degenerative disease of t he fifth metacarpal phalangeal joint. Impression: Chronic findings as well as distal plate-screw fixation of the ulnar metadiaphysis with f racture line still appreciated and periosteal new bone formation.
== END 2018-11-14 22:20 | disposition home or self-care (01) ==
LOC: ERS 20:58
DX: S50.12XA Contusion of left forearm, initial encounter (principal); J45.909 Unspecified asthma, uncomplicated; M19.90 Unspecified osteoarthritis, unspecified site; F32.9 Major depressive disorder, single episode, unspecified; Z79.899 Other long term (current) drug therapy; W51.XXXA Accidental striking against or bumped into by another person, initial encounter

== ENCOUNTER 2018-12-14 09:43 | Outpatient (CLI) | payer OTHER ==
--- NOTE | 2018-12-14 10:55 | CT ---
Exam: Left upper extremity CT scan without IV contrast: HISTORY: Ulnar fracture with pain and swelling FINDINGS: Metal plate and screws are placed stabilizing a mid ulnar diaphyseal ulna fracture. There is incomple te union of this fracture. There is some associated periosteal reaction. There is some minimal jane hardware lucency around the radial side of the middle screw, possibly some loosening, no evidence for overt hardware fracture. IMPRESSION: Incomplete union fracture of the ulnar diaphysis. Minimal jane hardware lucency around the radial eduin e of the middle screw suggests the possibility of some loosening. Other findings as above.
== END 2018-12-14 09:44 | disposition home or self-care (01) ==
LOC: BICCT 09:43
PROVIDERS: ATTEND Orthopaedic Surgery Hand Surgery
DX: S52.202K Unspecified fracture of shaft of left ulna, subsequent encounter for closed fracture with nonunion (principal)

== ENCOUNTER 2019-02-11 21:09 | Emergency (ER) | payer OTHER ==
[2019-02-11] MEDS ORDERED: Proparacaine 0.5% Opth 15 ML BOT ONE ×2 (21:50→21:51)
[2019-02-11] MEDS ORDERED: Fluorescein Opthalmic Strip ONE (21:50)
== END 2019-02-11 22:29 | disposition home or self-care (01) ==
LOC: ERS 21:09
DX: S05.02XA Injury of conjunctiva and corneal abrasion without foreign body, left eye, initial encounter (principal); H20.9 Unspecified iridocyclitis; J45.909 Unspecified asthma, uncomplicated; F32.9 Major depressive disorder, single episode, unspecified; Z79.899 Other long term (current) drug therapy; X58.XXXA Exposure to other specified factors, initial encounter
CPT/HCPCS: 99282

== ENCOUNTER 2020-02-05 08:16 | Outpatient (CLI) | payer MEDICARE, MEDICAID ==
--- NOTE | 2020-02-05 09:34 | MRI ---
MRI Lumbar Spine WO Con History: Radiculopathy Comparison: None. Findings: Aortic contour is nonaneurysmal. 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 No marrow infiltrative process. Conus medullaris terminates near the inferior L1 endplate. Intraosseo us hemangioma of T12. Levels are as follows: L1/L2: Normal disc height and hydration. No neural foraminal or spinal canal narrowing. L2/L3: Mild disc desiccation and height loss. Small circumferential disc bulge. Moderate hypertrophic facet arthrosis. Spinal canal measures 1 cm. Mild bilateral neural foraminal narrowing. L3/L4: Moderate disc desiccation and height loss. Large circumferential disc bulge is greatest in the right lateral recess and subforaminal zone. Minimal ventral CSF space effacement. Spinal canal measures approximately 1 cm. Mild left and moderate right neural foraminal narrowing. L4/L5: Mild disc desiccation and height loss. Large facet osteophytes. Moderate circumferential disc bulge. Mild bilateral neural foraminal narrowing. L5/S1: High-grade disc desiccation and height loss. Large circumferential disc osteophyte complex. Mo derate left and moderate-severe right neural foraminal narrowing with abutment of both traversing S1 and right exiting L5 nerve root. Impression: Moderate spondylosis, greatest in the lower lumbar spine.
== END 2020-02-05 08:17 | disposition home or self-care (01) ==
LOC: BICMRI 08:16
PROVIDERS: ATTEND Anesthesiology Pain Medicine
DX: M47.26 Other spondylosis with radiculopathy, lumbar region (principal)
CPT/HCPCS: 72148

== ENCOUNTER 2020-02-18 11:52 | Emergency (ER) | payer MEDICARE, MEDICAID ==
[2020-02-18] MEDS ORDERED: Ketorolac Tromethamine 30 MG/ML VIAL ONE (12:17)
[2020-02-18] MEDS ORDERED: predniSONE 20 MG TAB ONE (12:17)
== END 2020-02-18 12:40 | disposition home or self-care (01) ==
LOC: ERS 11:52
DX: M54.41 Lumbago with sciatica, right side (principal); Z79.899 Other long term (current) drug therapy; J45.909 Unspecified asthma, uncomplicated
CPT/HCPCS: 96372; 99283; J1885; J7512

== ENCOUNTER 2020-11-08 14:54 | Outpatient (CLI) | payer MEDICARE, MEDICAID ==
[2020-11-08 16:30] LABS: #Basophils 0.1 10x3/uL (0.0-0.2); #Eosinphils 0.3 10x3/uL (0.0-0.5); #Monocytes 0.6 10x3/uL (0.0-1.1); #Neutrophils 2.4 10x3/uL (1.5-8.4); %Basophils 0.8 % (0.0-2.0); %Eosinophils 4.6 % (0.0-6.0); %Lymphocytes 48.3 % (18.0-47.0); %Monocytes 8.6 % (0.0-10.0); %Neutrophils 37.2 % (40.0-75.0); Hemoglobin 11.7 g/dL (12.0-15.5); Mean Corpuscular HGB CONC 31.4 g/dL (32.0-36.0); Mean Corpuscular Hemoglobin 26.9 pg (27.0-33.0); Mean Corpuscular Volume 85.7 fl (81.6-98.3); Mean Platelet Volume 9.7 fl (7.4-10.4); Platelet Count 334 10x3/uL (150-450); RBC Distribution Width 14.9 % (11.5-14.5); Red Blood Cell (RBC) Count 4.35 10x6/uL (3.90-5.03); White Blood Cell (WBC) Count 6.4 10x3/uL (3.5-10.5)
[2020-11-09 00:54] LABS: SARS-CoV-2 PCR by NAA Not Detected (NotDetected)
== END 2020-11-08 14:55 | disposition home or self-care (01) ==
LOC: LABBT 14:54
PROVIDERS: ATTEND Orthopaedic Surgery Hand Surgery
DX: Z01.812 Encounter for preprocedural laboratory examination (principal); M65.4 Radial styloid tenosynovitis [de Quervain]; Z20.822 Contact with and (suspected) exposure to COVID-19
CPT/HCPCS: 85025; U0003; U0005

== ENCOUNTER 2020-11-12 07:14 | Day surgery (SDC) | payer MEDICARE, MEDICAID ==
[2020-11-11 11:06] VITALS: BMI 38.6
[2020-11-12] MEDS ORDERED: ceFAZolin 2 GM/DEX 5% 100 ML BAG ONE (08:26)
[2020-11-12] MEDS ORDERED: Bupivacaine PF 0.5% 30 ML VIAL ONE (09:01)
[2020-11-12] MEDS ORDERED: Bacitracin Zinc Ointment 30 gm TUBE ONE (09:01)
[2020-11-12] MEDS ORDERED: Neomycin-Polymyxin 1 ML AMP ONE (09:01)
[2020-11-12] MEDS ORDERED: Fentanyl 100 MCG/2 ML VIAL ONE ×2 (09:22→09:44)
[2020-11-12] MEDS ORDERED: Midazolam HCl 2 mg/2 ml Vial ONE ×2 (09:36→10:11)
[2020-11-12] MEDS ORDERED: Scopolamine 1.5 mg/72 hour Patch ONE (09:37)
[2020-11-12] MEDS ORDERED: PROPOFOL 200 MG/20 ML VIAL ONE (10:18)
[2020-11-12] MEDS ORDERED: ePHEDrine 50 MG/ML VIAL ONE (10:18)
[2020-11-12] MEDS ORDERED: PHENYLEPHRINE-NS 100 MCG/ML 10 ML SYRINGE ONE (10:18)
[2020-11-12] MEDS ORDERED: Glycopyrrolate 0.2 MG/ML 5 ML SYRINGE ONE (10:18)
[2020-11-12] MEDS ORDERED: Ondansetron PF 4 MG/2 ML Vial ONE (10:18)
[2020-11-12] MEDS ORDERED: Dexamethasone 20 MG/5 ML VIAL ONE (10:18)
[2020-11-12] MEDS ORDERED: Bupivacaine HCl 0.5%/Epinephrine 1:200,000/PF 30 ml Vial ONE (10:18)
[2020-11-12] MEDS ORDERED: Lidocaine 1% PF 5 ML VIAL ONE (10:18)
[2020-11-12] MEDS ORDERED: Betamet Acet/Betamet Na Ph 30 MG/5 ML VIAL ONE (10:42)
[2020-11-12] MEDS ORDERED: Ketorolac Tromethamine 30 MG/ML VIAL ONE (12:52)
[2020-11-12] MEDS ORDERED: HYDROcodone/Acetaminophen 5/325 mg Tablet ONE (13:34)
== END 2020-11-12 14:42 | disposition home or self-care (01) ==
LOC: SDC 07:14
PROVIDERS: ATTEND Orthopaedic Surgery Hand Surgery
PROC: 0RPP04Z Removal of Internal Fixation Device from Left Wrist Joint, Open Approach (ICD-10-PCS; principal; 2020-11-12)
PROC: 0LN60ZZ Release Left Lower Arm and Wrist Tendon, Open Approach (ICD-10-PCS; 2020-11-12)
PROC: 3E0T3BZ Introduction of Anesthetic Agent into Peripheral Nerves and Plexi, Percutaneous Approach (ICD-10-PCS; 2020-11-12)
DX: M65.4 Radial styloid tenosynovitis [de Quervain] (principal); T84.84XA Pain due to internal orthopedic prosthetic devices, implants and grafts, initial encounter; J45.909 Unspecified asthma, uncomplicated; Z79.899 Other long term (current) drug therapy; Z88.8 Allergy status to other drugs, medicaments and biological substances; Z91.013 Allergy to seafood; Z98.890 Other specified postprocedural states
CPT/HCPCS: 76000; J0702; J1100; J1885; J2250; J2405; J2704; J3010; J3490; S0020

== ENCOUNTER 2022-05-04 08:51 | Outpatient (CLI) | payer MEDICARE, MEDICAID | END 2022-05-04 08:52 | disposition home or self-care (01) | LOC: SCSMRI 08:51 | PROVIDERS: ATTEND Anesthesiology | DX: M54.16 Radiculopathy, lumbar region (principal); M47.816 Spondylosis without myelopathy or radiculopathy, lumbar region; M47.817 Spondylosis without myelopathy or radiculopathy, lumbosacral region | CPT/HCPCS: 72148 ==